=== PATIENT | female | born 1965 | race Caucasian/White ===

== ENCOUNTER → 2018-11-30 | Outpatient (CLI) | payer OTHER ==
[2014-08-22 09:55] VITALS: BP 147/83
[~2018-11-30] MED LIST: AMOX1TAB11 PO; LEVO50TA PO; LISI1TAB5 PO; OMEP20TA8 PO
--- NOTE | 2018-11-30 13:17 | KCIC ---
Bilateral digital screening mammograms with 3-D tomosynthesis: Reason for examination: Routine screening. Comparison is made to previous studies dated 12/27/2015 and 12/20/2014. Bilateral mammograms in CC and oblique projections were obtained with 2-D imaging and 3-D tomosynthesis imaging on a Siemens Inspiration unit and reviewed on the workstation. Interpretation was made with the benefit of CAD. The skin and nipples show no abnormalities. No abnormal axillary lymph nodes are seen. The breast parenchyma shows scattered fatty and fibroglandular density. (Breast density: Category B.) There appear to be small circumscribed nodular lesions in the 6:00 positions anteriorly in both breasts. Recommend further evaluation with ultrasound. There are no other dominant masses, suspicious calcifications or architectural distortion. Impression: Small circumscribed nodular densities seen anteriorly in the 6:00 positions of both breasts. Recommend further evaluation with ultrasound. BI-RADS Category 0: Incomplete. Needs additional imaging evaluation. "Our facility is accredited by the [employer] Mammography [employer]." This patient's information has been entered into a reminder system for the patient to be notified with the results of her examination and a target date for the next mammogram. Electronically signed by: Keely Abrams MD (11/30/2018 1:14 PM) [id number]
== END | disposition home or self-care (01) ==
LOC: KCIC MAMMO 11:33
PROVIDERS: ATTEND Obstetrics & Gynecology
DX: Z12.31 Encounter for screening mammogram for malignant neoplasm of breast (principal)
CPT/HCPCS: 77063; 77067

== ENCOUNTER → 2018-12-08 | Outpatient (CLI) | payer OTHER ==
[2014-08-22 09:55] VITALS: BP 147/83
--- NOTE | 2018-12-08 14:07 | KCIC ---
Bilateral breast ultrasound: Reason for examination: Abnormal mammograms. Comparison is made to mammographic exam dated 11/30/2018. Ultrasound examination was performed in the areas of mammographic concern and at the axilla bilaterally. In the right breast at the 6:00 position 2 cm from the nipple, there is a 4.3 mm hypoechoic fibrocystic lesion which correspond with the area of mammographic concern. There is also some ductal ectasia. No abnormal appearing lymph nodes are seen in the axilla. In the left breast at the 6:00 position 2 cm from the nipple, there is a 10.2 x 9.5 x 7.7 mm hypoechoic lesion with posterior acoustic shadowing which would correspond to the area of mammographic concern. Malignancy cannot be excluded and biopsy is recommended. No abnormal appearing lymph nodes are seen in the left axilla. IMPRESSION: Small 4.3 mm benign-appearing hypoechoic fibrocystic lesion at the 6:00 position of the right breast. 10.2 mm hypoechoic lesion with posterior shadowing at the 6:00 position 2 cm from the nipple on the left breast. Recommend ultrasound-guided biopsy. BI-RADS Category 4: Suspicious. These findings have been discussed with the patient and the office of the patient's physician, Michelle Toussaint, was called about these findings at 1340 p.m on 12/08/2018 and I finally spoke to Dr. Toussaint at 1400 regarding these findings. "Our facility is accredited by the [employer] Mammography [employer]." This patient's information has been entered into a reminder system for the patient to be notified with the results of her examination and a target date for the next mammogram. Electronically signed by: Keely Abrams MD (12/08/2018 2:03 PM) [id number]
== END | disposition home or self-care (01) ==
LOC: KCIC US 09:02
PROVIDERS: ATTEND Obstetrics & Gynecology
DX: R92.2 Inconclusive mammogram (principal)
CPT/HCPCS: 76641